=== PATIENT | female | born 1990 | race Caucasian/White ===

== ENCOUNTER 2017-11-17 18:37 | Emergency (ER) | payer OTHER ==
[~2017-11-17] VITALS: Ht 157.5 cm; Wt 66.8 kg
[2017-11-17 18:50] VITALS: BP 102/61
--- NOTE | 2017-11-17 18:57 | NUR ---
WAITING FOR BED AVAILABLE. VSS, AAOX4
--- NOTE | 2017-11-17 19:07 | NUR ---
PT TAKEN TO BED 1
--- NOTE | 2017-11-17 19:09 | NUR ---
26YO F PATIENT PRESENTS TO ED [facility] IN RIGHT EAR X15 DAYS . PT STATES THAT SHE WENT TO THE DR X1WK AGO FOR SAME ISSUE, WAS GIVEN AND COMPLEATED ABX X5 DAYS WITH NO IMPROVEMENT. PT DENIES AND MED HX . DENIES N/V/D; SKIN IS PINK/WARM/DRY; AAOX4 WITH EVEN AND STEADY GAIT; LUNGS CLEAR BL; HR EVEN AND REGULAR; PT DENIES ANY FEVER, CP, SOB, OR COUGH AT THIS TIME; PATIENT STATES PAIN OF 0/10 AT THIS TIME; VSS; PATIENT POSITIONED FOR COMFORT; HOB ELEVATED; BEDRAILS UP X2; BED DOWN. ER MD MADE AWARE OF PT STATUS.
[2017-11-17 19:45] VITALS: BP 105/64
--- NOTE | 2017-11-17 19:45 | NUR ---
Patient discharged with v/s stable PER DR AMOR. Written and verbal after care instructions given and explained BY DR AMOR. Patient alert, oriented and verbalized understanding of instructions. Ambulatory with steady gait. All questions addressed prior to discharge. ID band removed. Patient advised to follow up with PMD. Rx of DEBROX 6.5% OTIC DROPS given. Patient educated on indication of medication including possible reaction and side effects. Opportunity to ask questions provided and answered.
== END 2017-11-17 19:45 | disposition home or self-care (01) ==
LOC: MED 18:37
DX: H61.21 Impacted cerumen, right ear (principal)
CPT/HCPCS: 99283